=== PATIENT | female | born 1985 ===

== ENCOUNTER 2017-01-07 00:06 | Emergency (ER) | payer OTHER, BC ==
[2017-01-07 00:13] VITALS: BP 135/83; PULSE 68; RESP 18; TEMP 98.2; O2SAT 99
[2017-01-07 00:55] LABS: RBC URINE < 1 /hpf (0-3); URINE BACTERIA RARE (<OCC); URINE BILIRUBIN NEGATIVE (NEGATIVE); URINE BLOOD NEGATIVE (NEGATIVE); URINE COLOR COLORLESS (YELLOW); URINE GLUCOSE (UA) NEG (Normal); URINE KETONE NEGATIVE (NEGATIVE); URINE LEUKOCYTE ESTERASE NEG Leu/uL (Negative); URINE PROTEIN NEGATIVE (NEGATIVE); URINE UROBILINOGEN 0.2-1.0 mg/dL (0.2-1.0); WBC URINE < 1 /hpf (0-5)
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
--- NOTE | 2017-01-07 10:00 | RAD ---
PROCEDURE: Cervical Spine Radiographs. HISTORY: Pain. COMPARISON: None. FINDINGS: BONES: Alignment maintained. No fracture. Dens Intact. DISC SPACES: Minimal multilevel cyst mid cervical spondylosis. SOFT TISSUES: Normal. No prevertebral soft tissue swelling. OTHER FINDINGS: None. IMPRESSION: Minimal mid level cervical spondylosis without fracture or spondylolisthesis appreciated. No definite destructive bony lesion identified. CT or MRI are available follow-up if clinically warranted.
--- NOTE | 2017-01-07 10:10 | RAD ---
PROCEDURE: Right Hip with pelvis Radiographs. HISTORY: pain COMPARISON: None. FINDINGS: BONES: No acute fracture or destructive bony lesion identified is the right hip joint or the pelvic ring. JOINTS: Right hip and bilateral sacroiliac joints appear unremarkable. Incidental views of the left hip joint appear unremarkable as well. Pubic symphysis appears intact. SOFT TISSUES: Normal. OTHER FINDINGS: None. IMPRESSION: Normal radiographs of right hip.
--- NOTE | 2017-01-07 10:24 | RAD ---
PROCEDURE: Radiographs of the Lumbar Spine. HISTORY: low back pain COMPARISON: No prior. FINDINGS: BONES: No acute fracture or spondylolisthesis is seen throughout the lumbar spine with mild straightening of lumbar curvature appreciated. To body disc interspace heights appear normal. No destructive bone lesions appreciated. There is an essential 90 degree angle seen at the the distal sacrum relative to the coccyx suggesting probable chronic healed fracture or potentially, a congenital deformity. DISC SPACES: Normal. OTHER FINDINGS: None. IMPRESSION: No definite acute fracture or spondylolisthesis. Likely old healed distal sacral/proximal coccyx fracture incidentally noted above.
== END 2017-01-07 01:59 | disposition home or self-care (01) ==
LOC: H.ER 00:06
DX: S70.01XA Contusion of right hip, initial encounter (principal); V43.52XA Car driver injured in collision with other type car in traffic accident, initial encounter; Y99.0 Civilian activity done for income or pay

== ENCOUNTER 2017-03-12 18:19 | Emergency (ER) | payer OTHER, BC ==
[2017-03-12 18:23] VITALS: BP 128/79; PULSE 68; RESP 18; TEMP 98.5; O2SAT 99
[2017-03-12] MEDS ORDERED: Oxycodone/Acetaminophen 5/325 mg Tab PO STA (18:39)
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
[2017-03-12] MEDS ORDERED: Oxycodone/Acetaminophen 5/325 mg Tab ONE (19:12)
--- NOTE | 2017-03-12 20:26 | ED PDOC ---
- ECG O2 Sat by Pulse Oximetry: 99 - Progress ED Course And Treament: Case endorsed to singer songwriter from Jacqu[facility] WHARTON pending xray Patient educated on findings, discharged with rx Naproxen, Lidoderm, Valium. Advised warm compresses. Follow up ortho Return precautions given Disposition - Clinical Impression Clinical Impression: Back pain - POA Present On Arrival: None - Disposition Disposition: Routine/Home Disposition Time: 20:45 Condition: IMPROVED Prescriptions: diaZEpam [Valium] 5 mg PO TID PRN #10 tab PRN Reason: Muscle Spasm Lidocaine 5% [Lidoderm] 1 patch TOP DAILY #10 patch Naproxen [Naprosyn] 500 mg PO Q12 PRN #20 tablet PRN Reason: Pain, Moderate (4-7) Instructions: Acute Low Back Pain (ED) Forms: [employer] (Lithuanian), [facility] ED School/Work Excuse
--- NOTE | 2017-03-13 13:23 | RAD ---
PROCEDURE: Radiographs of the Lumbar Spine. HISTORY: pain COMPARISON: No prior. FINDINGS: BONES: Normal alignment. No listhesis. No fracture. DISC SPACES: Unremarkable. OTHER FINDINGS: None. IMPRESSION: Unremarkable radiographs of the lumbar spine.
== END 2017-03-12 21:42 | disposition home or self-care (01) ==
LOC: H.ER 18:19
DX: M54.5 Low back pain (principal)
CPT/HCPCS: 72100; 81025; 96372; 99282; J1885

== ENCOUNTER 2017-12-24 21:54 | Emergency (ER) | payer BC, OTHER ==
[2017-12-24 22:05] VITALS: BP 105/70; PULSE 74; RESP 16; TEMP 97.4; O2SAT 97
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
== END 2017-12-25 00:34 | disposition home or self-care (01) ==
LOC: H.ER 21:54
DX: Z77.21 Contact with and (suspected) exposure to potentially hazardous body fluids (principal); Y99.0 Civilian activity done for income or pay